=== PATIENT | female | born 1995 | race Caucasian/White ===

== ENCOUNTER 2023-07-09 02:43 | Emergency (ER) | payer BC ==
[2023-07-09 03:15] LABS: Bilirubin Negative (Negative); Blood, Urine Negative (Negative); Clarity Clear (Clear); Glucose, Urine (Dipstick) Negative (Negative); Ketone, Urine Negative (Negative); Leukocyte Negative (Negative); Nitrite Negative (Negative); Protein, Urine (Dipstick) Negative (Neg-Trace); Urobilinogen 0.2 mg/dL (Less than 2); pH, Urine 5.5 (5.0-9.0)
[2023-07-09 03:20] LABS: CAUTI Indications for Culture Pelvic or flank pain; Mucous/LPF 2+ LPF (<2+); Pregnancy Test - Urine (BHCG) Negative (Negative); Pregu Control Background? CLEAR/WHITE (CLR/WHITE); Pregu Control Bar Appear? YES (CONTROL BAR); RBC/HPF 0-3 HPF (0-3); Specific Gravity 1.025 (1.002-1.036); Specific Gravity, Urine 1.025 (1.002-1.036); Urine Culture Reflex No No; WBC/HPF 0-3 HPF (0-3)
[2023-07-09] MEDS ORDERED: Orphenadrine Citrate 60 MG/2 ML VIAL ONE (03:33)
[2023-07-09] MEDS ORDERED: Lidocaine 4% Patch ONE (03:33)
[2023-07-09] MEDS ORDERED: Ketorolac Tromethamine 30 MG (1 mL) VIAL ONE (03:33)
== END 2023-07-09 04:05 | disposition home or self-care (01) ==
LOC: MADERS 02:43
DX: S39.012A Strain of muscle, fascia and tendon of lower back, initial encounter (principal); K21.9 Gastro-esophageal reflux disease without esophagitis; F17.290 Nicotine dependence, other tobacco product, uncomplicated; Z79.899 Other long term (current) drug therapy; X58.XXXA Exposure to other specified factors, initial encounter
CPT/HCPCS: 72100; 81001; 81025; 96372; 99283; J1885; J2360

== ENCOUNTER 2024-11-21 14:13 | Emergency (ER) | payer BC | END 2024-11-21 16:00 | disposition home or self-care (01) | LOC: MADERS 14:13 | DX: S80.02XA Contusion of left knee, initial encounter (principal); S80.01XA Contusion of right knee, initial encounter; F17.290 Nicotine dependence, other tobacco product, uncomplicated; W01.0XXA Fall on same level from slipping, tripping and stumbling without subsequent striking against object, initial encounter | CPT/HCPCS: 99282 ==

== ENCOUNTER 2025-02-08 16:48 | Emergency (ER) | payer BC ==
[2025-02-08] MEDS ORDERED: Ibuprofen 600 MG TAB ONE (17:08)
== END 2025-02-08 17:20 | disposition home or self-care (01) ==
LOC: MADERS 16:48
DX: S00.03XA Contusion of scalp, initial encounter (principal); S09.90XA Unspecified injury of head, initial encounter; I10 Essential (primary) hypertension; F17.290 Nicotine dependence, other tobacco product, uncomplicated; W01.198A Fall on same level from slipping, tripping and stumbling with subsequent striking against other object, initial encounter; Y99.0 Civilian activity done for income or pay
CPT/HCPCS: 99283